=== PATIENT | female | born 1995 | race Caucasian/White ===

== ENCOUNTER 2023-06-23 06:00 | Inpatient (IN) | payer OTHER, BC ==
[~2023-06-23] VITALS: Ht 170.2 cm; Wt 68.9 kg
--- OUTSIDE RECORDS SUMMARY | ~2023-06-23 | XMS | Continuity of Care Document ---
Demographics + + + | Address | [address] | | | [place] [address] | + + + | Preferred Language | Unknown | + + + | Marital Status | | + + + | [employer]ar[employer] Affiliation | Unknown | + + + | Race | White | + + + | Ethnic Group | Unknown | + + + Author + + + | Author | [facility] | + + + | Organization | [facility] | + + + | Address | [address] | | | [place] [address] | + + + | Phone | | + + + Care Team Providers + + + + | Care Education Program Specialist Name | Role | Phone | + + + + Unavailable | Unavailable | + + + + Allergies No information. Encounters No information. Functional Status No information. Immunizations No information. Medications No information. Problems + + + + | date | description | facility | + + + + | 2022-11-11 09:54 | [facility] | | | NORMAL [facility], FIRST | | | | [facility] | | + + + + | 2022-11-11 09:54 | 8 WEEKS [facility] | [facility] | | | | | + + + + | 2023-02-15 11:47 | [facility] | [facility] | | | NORMAL FIRST PREG, SECOND | | | | [facility] | | + + + + | 2023-02-15 11:47 | 22 WEEKS [facility]ATION [facility] | [facility] | | | | | + + + + Procedures No information. Results/Labs No information. Social History No information. Vital Signs No information."
[2023-06-23 07:26] LABS: AMPHETAMINES, UR NEGATIVE (NEGATIVE); BARBITURATES, UR NEGATIVE (NEGATIVE); MARIJUANA (THC), UR NEGATIVE (NEGATIVE)
[2023-06-23 07:27] LABS: BENZODIAZEPINES, UR NEGATIVE (NEGATIVE); BUPRENORPHINE,UR NEGATIVE (NEGATIVE); COCAINE, UR NEGATIVE (NEGATIVE); MDMA, UR NEGATIVE (NEGATIVE); METHADONE, UR NEGATIVE (NEGATIVE); METHAMPHETAMINE, UR NEGATIVE (NEGATIVE); OPIATES, UR NEGATIVE (NEGATIVE); OXYCODONE, UR NEGATIVE (NEGATIVE); PHENCYCLIDINE, UR NEGATIVE (NEGATIVE); TRICYCLIC ANTIDEPRESSANT, UR NEGATIVE (NEGATIVE)
[2023-06-23 07:28] LABS: HEMATOCRIT 36.3 % (35.0-50.0); HEMOGLOBIN 11.9 g/dL (12.0-18.0); MCHC 32.7 g/dl (30-36); MCV 88.7 fl (81-99); PLATELET COUNT 98 K/uL (140-440); RDW 13.5 (10.5-15.0)
[2023-06-23 07:32] VITALS: BP 130/73
[2023-06-23 07:46] LABS: SMEAR REVIEW BLOOD SEE COMMENTS
[2023-06-23 07:56] LABS: ABO B; RH POSITIVE
[2023-06-23 07:57] LABS: ANTIBODY SCREEN NEGATIVE
[2023-06-24 00:04] LABS: PH, VENOUS 7.358 (7.31-7.41)
[2023-06-25 05:25] LABS: HEMOGLOBIN 9.8 g/dL (12.0-18.0); MCH 28.9 (27-36)
[2023-06-25 05:26] LABS: HEMATOCRIT 30.2 % (35.0-50.0); MCHC 32.4 g/dl (30-36); MCV 89.3 fl (81-99); RBC 3.38 M/ul (4.3-5.7); RDW 13.7 (10.5-15.0)
== END 2023-06-25 09:50 | disposition home or self-care (01) | DRG 807 ==
LOC: FBC 06:00
PROVIDERS: ADMIT Obstetrics & Gynecology; ATTEND Obstetrics & Gynecology
PROC: 10E0XZZ Delivery of Products of Conception, External Approach (ICD-10-PCS; principal; 2023-06-23)
PROC: 0KQM0ZZ Repair Perineum Muscle, Open Approach (ICD-10-PCS; 2023-06-23)
PROC: 00HU33Z Insertion of Infusion Device into Spinal Canal, Percutaneous Approach (ICD-10-PCS; 2023-06-23)
PROC: 3E0R3BZ Introduction of Anesthetic Agent into Spinal Canal, Percutaneous Approach (ICD-10-PCS; 2023-06-23)
PROC: 3E0P7VZ Introduction of Hormone into Female Reproductive, Via Natural or Artificial Opening (ICD-10-PCS; 2023-06-23)
PROC: 10907ZC Drainage of Amniotic Fluid, Therapeutic from Products of Conception, Via Natural or Artificial Opening (ICD-10-PCS; 2023-06-23)
PROC: 0U7C3ZZ Dilation of Cervix, Percutaneous Approach (ICD-10-PCS; 2023-06-23)
DX: O48.0 Post-term pregnancy (principal); Z37.0 Single live birth; Z67.20 Type B blood, Rh positive; O70.1 Second degree perineal laceration during delivery; Z3A.40 40 weeks gestation of pregnancy
CPT/HCPCS: 01960; 36415; 82803; 85027; 85060; 86850; 86900; 86901; A9270; J2590; J7121